=== PATIENT | female | born 1955 | race Caucasian/White ===

== ENCOUNTER 2023-03-29 09:20 | Day surgery (SDC) | payer BC, OTHER ==
[2023-03-23 16:14] VITALS: BMI 25.2
[2023-03-29 12:28] VITALS: RESP 18; TEMP 97
[2023-03-29 12:34] VITALS: BP 119/58; PULSE 55
== END 2023-03-29 12:35 | disposition home or self-care (01) ==
LOC: FASU-ENDO 09:20
PROVIDERS: ATTEND Internal Medicine Gastroenterology
PROC: 0DJD8ZZ Inspection of Lower Intestinal Tract, Via Natural or Artificial Opening Endoscopic (ICD-10-PCS; principal; 2023-03-29 11:45)
DX: Z12.11 Encounter for screening for malignant neoplasm of colon (principal); K57.30 Diverticulosis of large intestine without perforation or abscess without bleeding; Z80.0 Family history of malignant neoplasm of digestive organs; Z83.71 Family history of colonic polyps